=== PATIENT | female | born 1985 | race Caucasian/White ===

== ENCOUNTER 2016-10-01 15:11 | Emergency (ER) | payer OTHER ==
[~2016-10-01 15:11] MED LIST: ACYCLOVIR200 MG PO; ALBUTEROL17 GM INH; ALBUTEROL20 ml INH; ANAPHYLACTIC KI1 KIT IM; BACITRACIN30 GM TOP; BACTRIM DS TABL1 TA1 PO; BACTRIM DS TABL1 TA2 PO; BACTRIM DS TABL1 TAB PO; BENADRYL25 MG PO; BENZONATATE PO; CIPRO PO; CLEOCIN PO; CLINDAMYCIN HC300 MG PO; DARVOCET-N 1001 TAB PO; EPIPEN0.3 MG/0.1 IM; FIORICET PO; FLAGYL PO; FLEXERIL PO; KEFLEX PO; KEFLEX500 MG PO; KEFZOL2 GM INJ; LOMOTIL TABLET1 TAB PO; LORTAB 7.5-5001 TAB PO; MEDROL PO; MEDROL4 MG/DOSE- PO; MULTI-VITAMIN1 TAB PO; NO MEDICATIONS; NORMODYNE PO; ORUDIS75 M1 PO; PHENERGAN PO; PHENERGAN PR; PHENERGAN25 MG PO; PREDNISONE PO; TYLENOL #3 PO; ULTRAM PO; VALTREX PO; VICODIN 5/500 T1 TAB PO; VOLTAREN75 MG PO; ZITHROMAX PO
== END 2016-10-01 15:39 | disposition left against medical advice (07) ==
LOC: CED 15:11
DX: Z53.21 Procedure and treatment not carried out due to patient leaving prior to being seen by health care provider (principal)

== ENCOUNTER 2016-12-28 22:52 | Emergency (ER) | payer SELFPAY | END 2016-12-29 01:20 | disposition home or self-care (01) | LOC: CED 22:52 | DX: T78.1XXA Other adverse food reactions, not elsewhere classified, initial encounter (principal); J45.909 Unspecified asthma, uncomplicated; I10 Essential (primary) hypertension; F17.210 Nicotine dependence, cigarettes, uncomplicated; Z88.0 Allergy status to penicillin; Z91.010 Allergy to peanuts; Z88.8 Allergy status to other drugs, medicaments and biological substances | CPT/HCPCS: 36415; 94640; 96374; 96375; 99291; J0171; J1200; J2930 ==

== ENCOUNTER 2017-02-25 00:25 | Emergency (ER) | payer SELFPAY ==
[2017-02-25 03:44] LABS: AMPHETAMINE POS (NEG); BARBITURATES NEG (NEG); BENZODIAZEPINES NEG (NEG); COCAINE NEG (NEG); MARIJUANA NEG (NEG); OPIATES POS (NEG); TRICYCLIC ANTIDEPRESSANTS NEG (NEG); U METHADONE NEG (NEG)
[2017-04-09] MEDS ORDERED: NO MEDICATIONS (09:43)
== END 2017-02-25 04:40 | disposition home or self-care (01) ==
LOC: CED 00:25
PROVIDERS: Emergency Medicine
DX: F15.10 Other stimulant abuse, uncomplicated (principal); F11.10 Opioid abuse, uncomplicated
CPT/HCPCS: 36415; 80307; 84703; 99285; G0480; J2405

== ENCOUNTER 2017-03-30 01:12 | Emergency (ER) | payer SELFPAY ==
[2017-04-09] MEDS ORDERED: NO MEDICATIONS (09:43)
== END 2017-03-30 04:00 | disposition home or self-care (01) ==
LOC: CED 01:12
DX: T78.01XA Anaphylactic reaction due to peanuts, initial encounter (principal); F17.200 Nicotine dependence, unspecified, uncomplicated
CPT/HCPCS: 94640; 96374; 96375; 99283; J1200; J2930